=== PATIENT | male | born 1990 ===

== ENCOUNTER 2020-12-12 14:32 | Emergency (ER) | payer SELFPAY ==
[~2020-12-12] VITALS: Ht 170.2 cm; Wt 115.7 kg
--- NOTE | 2020-12-12 14:46 | NUR ---
MD Gong at bedside for assessment
--- NOTE | 2020-12-12 15:05 | NUR ---
Patient left to radiology department for x-ray
--- NOTE | 2020-12-12 15:33 | NUR ---
Patient returned from radiology department
[2020-12-12 15:53] VITALS: BP 140/78
--- NOTE | 2020-12-12 15:53 | NUR ---
Patient discharged to home in stable condition. Written and verbal after care instructions given. Patient verbalizes understanding of instructions. Stressed follow up or return to ER for worsening s/s.
== END 2020-12-12 15:54 | disposition home or self-care (01) ==
LOC: ER 14:35
DX: S20.211A Contusion of right front wall of thorax, initial encounter (principal); W17.89XA Other fall from one level to another, initial encounter; Y93.01 Activity, walking, marching and hiking; Y92.832 Beach as the place of occurrence of the external cause; Y99.8 Other external cause status
CPT/HCPCS: 71101; A4663